=== PATIENT | female | born 1955 | race Caucasian/White ===

== ENCOUNTER 2022-04-11 12:00 | Outpatient (CLI) | payer MEDICARE, SELFPAY | END 2022-04-11 12:01 | disposition home or self-care (01) | LOC: SLEEP 04-12 14:35 | PROVIDERS: Visit Provider Family Medicine | DX: G47.33 Obstructive sleep apnea (adult) (pediatric) (principal) | CPT/HCPCS: G0399 ==

== ENCOUNTER 2022-05-29 15:37 | Outpatient (CLI) | payer MEDICARE, MEDICAID, SELFPAY | END 2022-05-29 15:38 | disposition home or self-care (01) | LOC: SPT 15:38 | PROVIDERS: Visit Provider Podiatrist Foot & Ankle Surgery | DX: Z46.89 Encounter for fitting and adjustment of other specified devices (principal); M72.2 Plantar fascial fibromatosis | CPT/HCPCS: 20550; 97760; 99203; J1100; J3301; L4397 ==

== ENCOUNTER → 2022-06-21 13:49 | Outpatient (BNVA) | payer MEDICARE, MEDICAID, SELFPAY | PROVIDERS: Visit Provider Podiatrist Foot & Ankle Surgery | DX: M72.2 Plantar fascial fibromatosis (principal) | CPT/HCPCS: 20610; 99213 ==

== ENCOUNTER 2022-07-19 11:45 | Outpatient (CLI) | payer MEDICARE, MEDICAID, SELFPAY ==
--- NOTE | 2022-07-18 11:40 | NM_ITS ---
WS: [email or web address] NUCLEAR MEDICINE 24 HOUR I-123 THYROID UPTAKE INDICATION: Ultrasound November 15, 2021 TECHNIQUE: I-123 24 HOUR THYROID UPTAKE WITH PLANAR IMAGING. 128 U[facility] FREDDY 123 COMPARISON: Ultrasound November 15, 2021 FINDINGS: 24-hour thyroid uptake 23.74% within normal limits Mild thyroid enlargement. Large cold defect in the RIGHT lower lobe corresponds to the previously ravi cribed complex cystic cavitated nodule on the prior ultrasound. NORMAL 24H THRYOID UPTAKE 8-35% NM/NM thyroid uptake multi [id number] IMPRESSION: 1. 24-hour thyroid uptake 23.74% within normal limits. 2. Large cold defect in the RIGHT lower lobe corresponds to the previously ravi cribed complex cystic cavitated nodule on the prior ultrasound. Recommend ENT c onsultation for resection
== END 2022-07-19 11:46 | disposition home or self-care (01) ==
LOC: RAD 11:45
PROVIDERS: Visit Provider Specialist
DX: E04.1 Nontoxic single thyroid nodule (principal); E05.90 Thyrotoxicosis, unspecified without thyrotoxic crisis or storm
CPT/HCPCS: 78014; A9516

== ENCOUNTER → 2022-09-05 07:39 | Outpatient (BNVA) | payer OTHER, MEDICAID, SELFPAY | PROVIDERS: PCP Family Medicine; Referring Provider Specialist; Visit Provider Internal Medicine | DX: E04.1 Nontoxic single thyroid nodule (principal); E05.90 Thyrotoxicosis, unspecified without thyrotoxic crisis or storm | CPT/HCPCS: 36415; 83516; 84432; 84439; 84443; 84480; 86376; 86800; 99204 ==

== ENCOUNTER 2022-12-05 11:54 | Outpatient (CLI) | payer OTHER, SELFPAY ==
[2022-12-05 12:50] LABS: Free T4 Free Thyroxine 1.13 ng/dL (0.82-1.77); Thyroid Stimulating Hormone 0.72 uIU/mL (0.27-4.20)
[2022-12-06 09:55] LABS: T3 Total 134 ng/dL (76-181)
== END 2022-12-05 11:55 | disposition home or self-care (01) ==
PROVIDERS: PCP Family Medicine; Visit Provider Internal Medicine
DX: E04.1 Nontoxic single thyroid nodule (principal); E05.90 Thyrotoxicosis, unspecified without thyrotoxic crisis or storm
CPT/HCPCS: 84439; 84443; 84480

== ENCOUNTER → 2022-12-13 08:16 | Outpatient (BNVA) | payer OTHER, MEDICAID, SELFPAY | PROVIDERS: PCP Family Medicine; Referring Provider Internal Medicine; Visit Provider Psychiatry & Neurology Neurology | DX: R29.818 Other symptoms and signs involving the nervous system (principal); R41.3 Other amnesia; R27.0 Ataxia, unspecified; E05.90 Thyrotoxicosis, unspecified without thyrotoxic crisis or storm; E04.1 Nontoxic single thyroid nodule | CPT/HCPCS: 99203; 99213; 99214 ==

== ENCOUNTER 2022-12-22 11:34 | Outpatient (CLI) | payer OTHER, MEDICAID, SELFPAY ==
--- NOTE | 2022-12-22 11:38 | MM_ITS ---
WS: [id number] BILATERAL 3D TOMOSYNTHESIS DIGITAL SCREENING MAMMOGRAPHY WITH CAD CLINICAL INFORMATION: SCREENING HISTORY: Screening mammogram. History of bilateral breast nodules COMPARISON: No comparisons available TECHNIQUE: Bilateral CC and MLO views. FINDINGS: Scattered fibroglandular densities bilaterally. Bilateral ovoid nodules some with associated calcific ations. These are indeterminate without comparison imaging. Recommend further evaluation with bilater al breast ultrasound. No other suspicious findings. Bilateral punctate and clustered calcifications. Dystrophic calcifications RIGHT breast. Vascular abundio cification. IMPRESSION: MM/[place] [id number] BI-RADS: 0-Incomplete: Need additional imaging evaluation FOLLOW UP: Need Additional Imaging Recommend bilateral breast ultrasound
== END 2022-12-22 11:35 | disposition home or self-care (01) ==
LOC: RAD 11:35
PROVIDERS: PCP Family Medicine; Visit Provider Family Medicine
DX: Z12.31 Encounter for screening mammogram for malignant neoplasm of breast (principal)
CPT/HCPCS: 77063; 77067

== ENCOUNTER 2023-01-16 11:41 | Outpatient (CLI) | payer OTHER, MEDICAID, SELFPAY ==
--- NOTE | 2023-01-16 12:00 | USCV_ITS ---
Aga Zavala Age: 67 Gender: F : 1955 Exam Date: 01/16/2023 11:56 Ordering Phys: Ruben Shelley MD Technologist: Exam Location: [facility] – [place] Indication: dizzy Risk Factors: Previous Vascular Surgery: Right Brachial BP: / Left Brachial BP: / Right Left Velocity (cm/s) Spectral Plaque Velocity (cm/s) Spectral Plaque Syst/Diast Broadening Syst/Diast Broadening 63.90/ 13.20 Prox CCA 80.50 / 16.50 65.10/ 17.60 Mid CCA 87.10 / 15.40 50.70/ 11.00 Distal CCA 73.90 / 17.60 62.80/ 19.80 Prox ICA 88.20 / 22.10 78.30/ 22.10 Mid ICA 86.00 / 3.30 83.80/ 29.80 Distal ICA 105.80/ 32.00 89.30 ECA 84.90 1.29 ICA/CCA 1.22 Antegrade Vertebral Antegrade 70.60/ 11.00 cm/s 56.00/ 17.00 cm/s Bi Subclavian Bi 71.70 94.80 FINDINGS Comparison: none available. No significant elevation of systolic or diastolic velocities. Waveforms are normal. Mild carotid atherosclerosis. Antegrade vertebral arteries. CONCLUSIONS Bilateral ICA stenosis less than 50%. Mild carotid plaque. Dr. Lesvia Ramos DO (Electronically Signed) Final Date: 16 January 2023 13:23 S
--- NOTE | 2023-01-16 13:45 | MR_ITS ---
WS: [id number] MRI HEAD WITHOUT CONTRAST TECHNIQUE: Sagittal T1, T2 axial, T2 axial FLAIR, axial and coronal T1 images, axial susceptibility w eighted imaging, axial diffusion weighted images, and coronal T2 images were obtained. CLINICAL INFORMATION: R41.3 - Other amnesia COMPARISON: None. FINDINGS: No evidence of restricted diffusion to suggest acute ischemia. Ventricular system and basilar cistern s are patent. Minimal small vessel changes. Moderate parenchymal volume loss. Numerous chronic lacuna r infarcts in the RIGHT cerebellum. Normal vascular flow voids at the skull base. No extra-axial flui d collections. No evidence of mass or mass effect. No hemosiderin on the susceptibly weighted images. Mild to moderate symmetric atrophy temporal lobes and hippocampal formations. Normal optic chiasm an d pituitary infundibulum. Paranasal sinuses are well aerated. Mastoid air cells are well aerated. IMPRESSION: 1. No evidence of restricted diffusion to suggest acute ischemia. 2. Mild small vessel changes with moderate parenchymal volume loss worse in the parietal lobes. 3. Mild to moderate symmetric atrophy temporal lobes and hippocampal formations. 4. No hemosiderin on susceptibly weighted images. 5. Multiple chronic lacunar infarcts in the RIGHT cerebellum.
== END 2023-01-16 11:42 | disposition home or self-care (01) ==
PROVIDERS: PCP Family Medicine; Visit Provider Psychiatry & Neurology Neurology
DX: R41.3 Other amnesia (principal); R42 Dizziness and giddiness; I65.23 Occlusion and stenosis of bilateral carotid arteries; Z86.73 Personal history of transient ischemic attack (TIA), and cerebral infarction without residual deficits
CPT/HCPCS: 70551; 93880

== ENCOUNTER 2023-01-23 07:34 | Outpatient (CLI) | payer OTHER, MEDICAID, SELFPAY ==
--- NOTE | 2023-01-23 07:45 | US_ITS ---
WS: [id number] THYROID ULTRASOUND HISTORY: nodules COMPARISON: 11/15/2021 Right lobe: Three-point cm x 3.1 cm x 6.8 cm (w x ap x l). Volume: 40.4 cm3. Enlarged RIGHT thyroid. There is a thick walled cystic mass with increased vascularity replacing a la rge portion of the gland. This is predominantly in the mid gland. This mass measures 4.9 x 3.0 x 5.3 cm. Similar in appearance to the prior exam. The thick nodular peripheral component is concerning for malignancy. Biopsy was previously recommended. Left lobe: 1.5 cm x 1.4 cm x 5.3 cm (w x ap x l). Volume: 5.8 cm3. Normal sized gland. Benign-appearing hypoechoic nodule in the central gland measures 7 x 7 x 8 mm. Isthmus: 0.4 cm. IMPRESSION: 1. Large thick-walled cystic mass centered in the RIGHT thyroid is similar in appearance to prior zohaib dy from 11/15/2021. As per history this has been previously biopsied and was negative. 2. No additional concerning thyroid nodules.
== END 2023-01-23 07:35 | disposition home or self-care (01) ==
LOC: RAD 07:34
PROVIDERS: PCP Family Medicine; Visit Provider Internal Medicine
DX: E04.1 Nontoxic single thyroid nodule (principal)
CPT/HCPCS: 76536

== ENCOUNTER 2023-01-29 12:40 | Outpatient (CLI) | payer OTHER, MEDICAID, SELFPAY ==
--- NOTE | 2023-01-29 12:44 | US_ITS ---
WS: [email or web address] Bilateral breast ultrasound, 01/29/2023 Clinical Data: INCONCLUSIVE MAMMOGRAM Comparison: Mammogram, 12/22/2022 Findings: Imaging of the upper outer quadrants in both breasts revealed in the right breast at 9 o'clock positi on 1 cm from the nipple there were well-defined lesions with smooth borders, one measures 0.61 x 0.73 x 0.79 cm and the second at 11:00 was 0.97 x 0.79 x 1.22 cm. There are calcifications associated wit h this second lesion and shadowing occurred. In the left breast at the 12 o'clock position there is a lesion with a well-defined border measuring 0.80 x 0.91 x 1.30 cm. Also in the left breast there is a second lesion at the 3 o'clock position bernadette suring 0.59 x 0.65 x 0.90 cm with a smooth bordered but probably a calcification within causing shado wing. Impression: 1. Bilateral lesions in the upper outer quadrant of the breasts which are probably benign. 2. Recommend follow-up mammogram and ultrasound in 6 months. US/US breast BI limited* [id number] BIRADS: 3-Probably Benign FOLLOW UP: 6 Month Follow-up
== END 2023-01-29 12:41 | disposition home or self-care (01) ==
LOC: RAD 12:40
PROVIDERS: PCP Family Medicine; Visit Provider Family Medicine
DX: R92.2 Inconclusive mammogram (principal); N64.9 Disorder of breast, unspecified
CPT/HCPCS: 76642

== ENCOUNTER → 2023-03-13 09:08 | Outpatient (BNVA) | payer MEDICARE, MEDICAID, SELFPAY | PROVIDERS: PCP Family Medicine; Visit Provider Nurse Practitioner Family | DX: L71.8 Other rosacea (principal); L57.0 Actinic keratosis; L21.8 Other seborrheic dermatitis; D22.5 Melanocytic nevi of trunk; L57.8 Other skin changes due to chronic exposure to nonionizing radiation; L81.4 Other melanin hyperpigmentation | CPT/HCPCS: 17000; 99214 ==

== ENCOUNTER → 2023-05-08 10:24 | Outpatient (BNVA) | payer MEDICARE, MEDICAID, SELFPAY | PROVIDERS: PCP Family Medicine; Visit Provider Psychiatry & Neurology Neurology | DX: R29.818 Other symptoms and signs involving the nervous system (principal); R27.0 Ataxia, unspecified; R41.3 Other amnesia | CPT/HCPCS: 99212 ==

== ENCOUNTER → 2023-07-02 08:58 | Outpatient (BNVA) | payer MEDICARE, SELFPAY | PROVIDERS: PCP Family Medicine; Referring Provider Family Medicine; Visit Provider Internal Medicine Cardiovascular Disease | DX: R00.2 Palpitations (principal); I49.1 Atrial premature depolarization; I49.3 Ventricular premature depolarization | CPT/HCPCS: 93225 ==

== ENCOUNTER 2023-07-18 11:10 | Outpatient (CLI) | payer MEDICARE, SELFPAY ==
--- NOTE | 2023-07-18 11:16 | USCV_ITS ---
Aga Zavala Age: 67 Gender: F : 1955 Exam Date: 07/18/2023 11:28 Ordering Phys: Trace Johnson MD Technologist: Exam Location: [facility] – [place] Indication: cva BP: 125 / 70 HR: Rhythm: Sinus Technical Quality: Adequate MEASUREMENTS (Male / Female) Normal Values 2D ECHO LV Diastolic Diameter PLAX 3.9 cm 4.2 - 5.9 / 3.9 - 5.3 cm IVS Diastolic Thickness 0.9 cm 0.6 - 1.0 / 0.6 - 0.9 cm IVS Systolic Thickness 1.5 cm LVPW Diastolic Thickness 1.0 cm 0.6 - 1.0 / 0.6 - 0.9 cm LVPW Systolic Thickness 1.9 cm LVOT Diameter 1.7 cm LV Ejection Fraction 2D Teich 62.5 % LV Ejection Fraction MOD 2C 69.1 % LV Ejection Fraction 2C AL 70.3 % LA Diameter 2.8 cm RA Systolic Volume 4C AL 37.8 ml RA Systolic Volume 4C MOD 35.5 ml LA Sys Volume AL 46.5 cm cubed LA Sys Volume Index AL 24.1 cm cubed/m squared Aorta at Sinotubular Diameter 2.5 cm M-MODE LA Ao Ratio MM 1.4 AV Cusp Separation MM 2.2 cm FINDINGS Left Ventricle Left ventricle is normal size. LV systolic function is normal with EF of 60 to 65%. No regional wall motion abnormalities are seen. Right Ventricle Normal in size and function Right Atrium Normal in size. No interatrial shunting seen on bubble study. Left Atrium Normal in size Mitral Valve Structurally normal mitral valve. Aortic Valve Structurally normal aortic valve. Tricuspid Valve Grossly normal Pulmonic Valve Not well visualized Pericardium Normal Aorta Appears to be normal IVC Not visualized CONCLUSIONS LV systolic function is normal with EF of 60 to 65%. No interatrial shunting seen on bubble study. Doppler exam not performed for valve assessment. No comparison studies are available. Lloyd Santos MD (Electronically Signed) Final Date: 28 July 2023 22:23 S
== END 2023-07-18 11:11 | disposition home or self-care (01) ==
LOC: RAD 11:11
PROVIDERS: PCP Family Medicine; Visit Provider Family Medicine
DX: Z86.73 Personal history of transient ischemic attack (TIA), and cerebral infarction without residual deficits (principal)
CPT/HCPCS: C8924

== ENCOUNTER 2023-09-11 11:05 | Outpatient (CLI) | payer MEDICARE, SELFPAY ==
--- NOTE | 2023-09-11 11:11 | MM_ITS ---
WS: [id number] DIAGNOSTIC BILATERAL DIGITAL BREAST TOMOSYNTHESIS MAMMOGRAPHY WITH CAD Bilateral breast ultrasound, limited HISTORY: Bilateral breast masses. COMPARISON: 12/22/2022, breast ultrasound 01/29/2023 TECHNIQUE: Bilateral craniocaudad, mediolateral oblique, and mediolateral views are submitted with to laura and [place]. Spot compression views each breast. Computer aided detection utilized. Breast composition: The breasts are heterogeneously dense, which may obscure small masses. Patient mckeon s multiple scattered masses within each breast that were also identified on 12/22/2022. No prior long -term mammogram made available for review and comparison. RIGHT breast: There are 3 masses within the upper outer quadrant of the RIGHT breast. The largest bernadette sures 1.4 x 1.2 cm at a middle depth. 2 of these masses contain calcifications. LEFT breast: There are 2 well-circumscribed masses. 1 of these masses is at 12:00 and one at 3-4 o'cl ock. The largest at 12:00 is 1.4 x 1.3 cm and contains a central calcification. Neither of these mass es has changed since the prior study. Bilateral breast ultrasound: RIGHT: Hypoechoic mass 9:00 2 cm from the nipple 1.0 x 1.1 x 0.5 cm. Complex mass with no through tra nsmission. Additional mass in the upper outer quadrant 9:00, 1 cm from the nipple measures 0.6 x 0.4 x 0.4 cm. Complex mass with no increased vascularity. There is an additional mass at 10:00 with irreg ular borders and calcifications. This mass measures 1.2 x 1.5 x 0.8 cm and may be a fibroadenoma. Thi s has not increased in size. LEFT: 12:00, 1 cm from the nipple. Hypoechoic mass without through transmission measures 1.3 x 0.8 x 0.9 cm. Additional hypoechoic mass at 4:00, 3 cm from nipple is measured 0.9 x 0.8 x 0.6 cm. All of these masses appear fairly similar in appearance. These are hypoechoic without through transmi ssion. Some of these contain calcifications. As per history by the patient prior older examinations d emonstrated multiple breast masses also. Unfortunately we do not have access to those prior studies. 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 No change since 12/22/2022. MM/[place] [id number] IMPRESSION: BI-RADS: 3-Probably Benign FOLLOW UP: 6 Month Follow-up Recommend diagnostic ultrasound follow-up in 6 months. Without having older exa minations for comparison then serial follow-up will be necessary. Ultrasound ev aluation in 6 months recommended. If the prior older mammogram examinations bec ome available for review the follow-up exams may not be necessary.
== END 2023-09-11 11:06 | disposition home or self-care (01) ==
LOC: RAD 11:06
PROVIDERS: PCP Family Medicine; Visit Provider Family Medicine
DX: R29.818 Other symptoms and signs involving the nervous system (principal); R92.8 Other abnormal and inconclusive findings on diagnostic imaging of breast; N63.20 Unspecified lump in the left breast, unspecified quadrant; R27.0 Ataxia, unspecified; N63.10 Unspecified lump in the right breast, unspecified quadrant; R41.3 Other amnesia; Z86.73 Personal history of transient ischemic attack (TIA), and cerebral infarction without residual deficits
CPT/HCPCS: 76642; 77062; 99212; 99213; G0279

== ENCOUNTER → 2023-10-29 10:24 | Outpatient (BNVA) | payer MEDICARE, SELFPAY | PROVIDERS: PCP Family Medicine; Visit Provider Nurse Practitioner Family | DX: L71.8 Other rosacea (principal); L57.0 Actinic keratosis; L21.8 Other seborrheic dermatitis; D22.5 Melanocytic nevi of trunk; L57.8 Other skin changes due to chronic exposure to nonionizing radiation; L81.4 Other melanin hyperpigmentation; D23.5 Other benign neoplasm of skin of trunk; L82.0 Inflamed seborrheic keratosis | CPT/HCPCS: 17000; 17110; 99214 ==

== ENCOUNTER → 2023-11-26 11:45 | Outpatient (BNVA) | payer MEDICARE, MEDICAID, SELFPAY | PROVIDERS: Visit Provider Internal Medicine | DX: E05.90 Thyrotoxicosis, unspecified without thyrotoxic crisis or storm (principal); R73.03 Prediabetes; R27.0 Ataxia, unspecified; E04.1 Nontoxic single thyroid nodule; I63.81 Other cerebral infarction due to occlusion or stenosis of small artery; Z82.49 Family history of ischemic heart disease and other diseases of the circulatory system | CPT/HCPCS: 36415; 84443; 99214 ==

== ENCOUNTER → 2023-11-27 15:00 | Outpatient (BNVA) | payer MEDICARE, MEDICAID, SELFPAY | PROVIDERS: Visit Provider Psychiatry & Neurology Neurology | DX: I63.9 Cerebral infarction, unspecified (principal); R26.89 Other abnormalities of gait and mobility; I63.81 Other cerebral infarction due to occlusion or stenosis of small artery; R29.818 Other symptoms and signs involving the nervous system; Z79.02 Long term (current) use of antithrombotics/antiplatelets | CPT/HCPCS: 80076; 85025; 99212; 99213 ==

== ENCOUNTER 2023-11-30 16:58 | Outpatient (CLI) | payer MEDICARE, SELFPAY ==
--- NOTE | 2023-11-30 16:45 | MRR_ITS ---
PROCEDURE INFORMATION: Exam: MRA Head Without Contrast; Arteriography Exam date and time: 11/30/2023 5:09 PM Age: 67 years old Clinical indication: Other: Loss of balance; Patient HX: HX of strokes, recent loss on balance; Additional info: I63.81 - other cerebral infarction due to occlusion or st. . . TECHNIQUE: Imaging protocol: Magnetic resonance angiography head without contrast. [id number] (TOF) technique was utilized for this exam. Exam focused on the arteries. COMPARISON: MR head wo con* [id number] 01/16/2023 1:46 PM FINDINGS: ANTERIOR CIRCULATION: Right internal carotid artery: Intracranial segment is patent with no significant stenosis. No aneurysm. Right middle cerebral artery: No occlusion or significant stenosis. No aneurysm. Right anterior cerebral artery: No occlusion or significant stenosis. No aneurysm. Left internal carotid artery: Intracranial segment is patent with no significant stenosis. No aneurysm. Left middle cerebral artery: No occlusion or significant stenosis. No aneurysm. Left anterior cerebral artery: No occlusion or significant stenosis. No aneurysm. POSTERIOR CIRCULATION: Right vertebral artery: No occlusion or significant stenosis. No aneurysm. Left vertebral artery: No occlusion or significant stenosis. No aneurysm. Basilar artery: No occlusion or significant stenosis. No aneurysm. Right posterior cerebral artery: No occlusion or significant stenosis. No aneurysm. Left posterior cerebral artery: No occlusion or significant stenosis. No aneurysm. There is origin of the posterior cerebral arteries. MR/MR angio head con [id number] IMPRESSION: Unremarkable MRA of the head.
== END 2023-11-30 16:59 | disposition home or self-care (01) ==
LOC: RAD 16:58
PROVIDERS: Visit Provider Psychiatry & Neurology Neurology
DX: I63.81 Other cerebral infarction due to occlusion or stenosis of small artery (principal); R26.89 Other abnormalities of gait and mobility; I63.9 Cerebral infarction, unspecified
CPT/HCPCS: 70544

== ENCOUNTER 2023-12-05 11:28 | Outpatient (RCR) | payer MEDICARE, SELFPAY | END 2023-12-13 23:59 | disposition home or self-care (01) | LOC: SPT 11:28 | PROVIDERS: Visit Provider Family Medicine | DX: M62.81 Muscle weakness (generalized) (principal); R26.89 Other abnormalities of gait and mobility | CPT/HCPCS: 97110; 97161 ==

== ENCOUNTER 2023-12-14 06:00 | Outpatient (RCR) | payer MEDICARE, SELFPAY | END 2024-01-12 23:59 | disposition home or self-care (01) | LOC: SPT 06:00 | PROVIDERS: Visit Provider Family Medicine | DX: R26.89 Other abnormalities of gait and mobility (principal) | CPT/HCPCS: 97110 ==

== ENCOUNTER 2023-12-27 08:15 | Outpatient (CLI) | payer MEDICARE, SELFPAY ==
--- NOTE | 2023-12-27 10:22 | USCV_ITS ---
Aga Zavala Age: 68 Gender: F : 1955 Exam Date: 12/27/2023 08:15 Ordering Phys: Madison Muñiz MD Technologist: CT Exam Location: [facility] – [place] Indication: BP: 120 / 70 HR: 79 Rhythm: Sinus Technical Quality: Adequate MEASUREMENTS (Male / Female) Normal Values 2D ECHO LVOT Diameter 2.0 cm LV Ejection Fraction MOD 4C 68.8 % LV Ejection Fraction MOD 2C 71.7 % LV Ejection Fraction 2C AL 71.8 % LA Diameter 4.3 cm RA Systolic Volume 4C AL 44.2 ml RA Systolic Volume 4C MOD 42.9 ml LA Sys Volume AL 49.0 cm cubed LA Sys Volume Index AL 25.2 cm cubed/m squared Aorta at Sinotubular Diameter 1.8 cm IVC Diameter 1.9 cm M-MODE LA Ao Ratio MM 1.5 AV Cusp Separation MM 1.7 cm DOPPLER AV Peak Velocity 124.0 cm/s AV Area Cont Eq vti 3.1 cm squared AV Area Cont Eq pk 2.2 cm squared MV Peak Velocity 133.0 cm/s MV Area PHT 3.6 cm squared Mitral E to A Ratio 0.8 TR Peak Velocity 334.0 cm/s TR Peak Gradient 44.6 mmHg TV Peak E Velocity 76.0 cm/s Right Atrial Pressure 3.0 mmHg Pulmonary Artery Systolic Pressu 47.6 mmHg PV Peak Velocity 109.0 cm/s FINDINGS Left Ventricle Normal left ventricular size, systolic function and wall thickness, with no regional wall motion abnormalities. Left ventricular ejection fraction is estimated at 60 %. Grade I/IV diastolic dysfunction (abnormal relaxation filling pattern), normal to mildly elevated filling pressures. Right Ventricle Normal right ventricular size and systolic function. Moderate pulmonary hypertension, RVSP 47.6 mmHg. Right Atrium The right atrium is normal in size. Left Atrium Moderately increased left atrial size. Mitral Valve Mildly thickened mitral valve. No mitral valve stenosis. Mild mitral valve regurgitation. Aortic Valve Mild aortic valve calcification. No aortic valve stenosis. Trace aortic valve regurgitation. Tricuspid Valve Mild tricuspid valve regurgitation. Pulmonic Valve Structurally normal pulmonic valve without significant stenosis. There is no pulmonic regurgitation. Pericardium Normal pericardium without effusion. Aorta Normal ascending aorta dimension. IVC The inferior vena cava appears normal. CONCLUSIONS Normal left ventricular size, systolic function and wall thickness, with no regional wall motion abnormalities. Left ventricular ejection fraction is estimated at 60 %. Grade I/IV diastolic dysfunction (abnormal relaxation filling pattern), normal to mildly elevated filling pressures. Normal right ventricular size and systolic function. Moderate pulmonary hypertension, RVSP 47.6 mmHg. Moderately increased left atrial size. Mildly thickened mitral valve. No mitral valve stenosis. Mild mitral valve regurgitation. Mild aortic valve calcification. No aortic valve stenosis. Trace aortic valve regurgitation. Mild tricuspid valve regurgitation. There is no pericardial effusion. Right atrial pressure is around 10 mm of mercury. Carmen Hannon MD (Electronically Signed) Final Date: 27 December 2023 21:17 S
== END 2023-12-27 08:16 | disposition home or self-care (01) ==
LOC: RAD 10:22
PROVIDERS: Visit Provider Internal Medicine
DX: I50.30 Unspecified diastolic (congestive) heart failure (principal); I51.7 Cardiomegaly; I63.81 Other cerebral infarction due to occlusion or stenosis of small artery; Z82.49 Family history of ischemic heart disease and other diseases of the circulatory system
CPT/HCPCS: C8929

== ENCOUNTER 2024-01-13 06:00 | Outpatient (RCR) | payer MEDICARE, SELFPAY | END 2024-01-22 23:59 | disposition home or self-care (01) | LOC: SPT 06:00 | PROVIDERS: Visit Provider Family Medicine | DX: R26.89 Other abnormalities of gait and mobility (principal) | CPT/HCPCS: 97110 ==

== ENCOUNTER → 2024-01-28 14:28 | Outpatient (BNVA) | payer MEDICARE, SELFPAY | PROVIDERS: Visit Provider Psychiatry & Neurology Neurology | DX: I63.81 Other cerebral infarction due to occlusion or stenosis of small artery (principal); R29.818 Other symptoms and signs involving the nervous system; Z79.01 Long term (current) use of anticoagulants | CPT/HCPCS: 99212; 99213 ==

== ENCOUNTER → 2024-03-24 14:52 | Outpatient (BNVA) | payer MEDICARE, SELFPAY | PROVIDERS: Referring Provider Internal Medicine; Visit Provider Internal Medicine Cardiovascular Disease | DX: R07.9 Chest pain, unspecified (principal); Z82.49 Family history of ischemic heart disease and other diseases of the circulatory system | CPT/HCPCS: 93005 ==

== ENCOUNTER 2024-05-06 12:41 | Outpatient (CLI) | payer MEDICARE, SELFPAY ==
--- NOTE | 2024-05-06 12:47 | US_ITS ---
WS: [id number] ULTRASOUND BILATERAL BREASTs HISTORY: DENSE BREAST COMPOSTION COMPARISON: 09/11/2023, 01/29/2023 TECHNIQUE: 2-D and Doppler. Bilateral breast masses are reidentified. There are numerous masses within each breast which are hypoechoic. RIGHT: None of these masses have changed in shape or size. There are multiple hypoechoic masses. Some of these have through transmission. The largest at 9:00 measures 0.8 x 0.9 x 0.5 cm. LEFT: Multiple masses are reidentified. These masses have not increased in size. The largest at 4:00 measures 0.8 x 0.7 cm. US/US breast BI limited* [id number] IMPRESSION: BI-RADS: 3- Probably Benign FOLLOW-UP: 6 Month Follow-up Patient to return in 6 months for annual mammogram. Ultrasound should be perfor med of the breasts at that time to demonstrate long-term stability.
== END 2024-05-06 12:42 | disposition home or self-care (01) ==
LOC: RAD 12:43
PROVIDERS: PCP Family Medicine; Visit Provider Family Medicine
DX: R92.333 Mammographic heterogeneous density, bilateral breasts (principal); N63.20 Unspecified lump in the left breast, unspecified quadrant; N63.10 Unspecified lump in the right breast, unspecified quadrant
CPT/HCPCS: 76642

== ENCOUNTER → 2024-07-28 14:07 | Outpatient (BNVA) | payer MEDICARE, SELFPAY | PROVIDERS: Visit Provider Psychiatry & Neurology Neurology | DX: I63.81 Other cerebral infarction due to occlusion or stenosis of small artery (principal); R29.818 Other symptoms and signs involving the nervous system | CPT/HCPCS: 99212 ==

== ENCOUNTER → 2024-10-09 10:08 | Outpatient (BNVA) | payer MEDICARE, SELFPAY | PROVIDERS: PCP Family Medicine; Referring Provider Psychiatry & Neurology Neurology; Visit Provider Internal Medicine Cardiovascular Disease | DX: I95.1 Orthostatic hypotension (principal); E78.5 Hyperlipidemia, unspecified; I27.20 Pulmonary hypertension, unspecified; Z86.73 Personal history of transient ischemic attack (TIA), and cerebral infarction without residual deficits; Z79.82 Long term (current) use of aspirin; Z82.49 Family history of ischemic heart disease and other diseases of the circulatory system; R07.9 Chest pain, unspecified | CPT/HCPCS: 93005; 99214 ==

== ENCOUNTER → 2024-11-17 10:57 | Outpatient (BNVA) | payer MEDICARE, SELFPAY | PROVIDERS: PCP Family Medicine; Visit Provider Nurse Practitioner Family | DX: B35.8 Other dermatophytoses (principal); L57.8 Other skin changes due to chronic exposure to nonionizing radiation; L81.4 Other melanin hyperpigmentation | CPT/HCPCS: 99214 ==

== ENCOUNTER → 2024-11-18 08:31 | Outpatient (BNVA) | payer MEDICARE, SELFPAY | PROVIDERS: PCP Family Medicine; Visit Provider Physician Assistant | DX: M17.12 Unilateral primary osteoarthritis, left knee (principal) | CPT/HCPCS: 73560; 73565 ==

== ENCOUNTER 2024-11-18 11:53 | Outpatient (CLI) | payer MEDICARE, SELFPAY | END 2024-11-18 11:54 | disposition home or self-care (01) | LOC: SPT 11:54 | PROVIDERS: PCP Family Medicine; Visit Provider Physician Assistant | DX: Z46.89 Encounter for fitting and adjustment of other specified devices (principal); M17.12 Unilateral primary osteoarthritis, left knee | CPT/HCPCS: 97161; L1851 ==

== ENCOUNTER → 2025-01-05 14:33 | Outpatient (BNVA) | payer MEDICARE, SELFPAY | PROVIDERS: PCP Family Medicine; Visit Provider Nurse Practitioner Family | DX: B35.8 Other dermatophytoses (principal); L30.4 Erythema intertrigo; L57.8 Other skin changes due to chronic exposure to nonionizing radiation; L81.4 Other melanin hyperpigmentation | CPT/HCPCS: 99214 ==

== ENCOUNTER → 2025-01-13 08:38 | Outpatient (BNVA) | payer MEDICARE, SELFPAY | PROVIDERS: PCP Family Medicine; Visit Provider Physician Assistant | DX: M17.12 Unilateral primary osteoarthritis, left knee (principal) | CPT/HCPCS: 99213 ==